=== PATIENT | female | born 1965 | race Two or more races ===

== ENCOUNTER → 2025-06-08 | Outpatient (CLI) | payer MEDICAID, SELFPAY ==
--- NOTE | 2025-06-08 14:15 | XR_ITS ---
Examination: Screening digital mammography, bilateral Computer aided detection 3-D breast Tomosynthesis, bilateral Date and time of exam: June 08, 2025 0926 hours, compared to mammograms dating to August 19, 2009 Indication: Screening Technique: Nonmagnified MLO, CC views of the breasts to been obtained, reconstructed from 3-D Tomosynthesis images. R2 computer aided detection program utilized for evaluation of suspicious masses and/or abnormal calcifications. 3-D Tomosynthesis images obtained. Findings: Scattered areas of fibroglandular density Benign calcifications Small circumscribed subcentimeter nodules bilaterally Impression: BI-RADS Category 0: Incomplete: Need additional imaging evaluation Recommend follow-up bilateral breast sonography to confirm small circumscribed BI-RADS 2 benign nodules both breasts
== END | disposition home or self-care (01) ==
PROVIDERS: PCP Nurse Practitioner Primary Care; Referring Provider Nurse Practitioner Primary Care; Visit Provider Nurse Practitioner Primary Care
DX: Z12.31 Encounter for screening mammogram for malignant neoplasm of breast (principal); R92.323 Mammographic fibroglandular density, bilateral breasts
CPT/HCPCS: 77063; 77067

== ENCOUNTER → 2025-09-05 | Outpatient (CLI) | payer MEDICAID, SELFPAY ==
--- NOTE | 2025-09-05 14:30 | XR_ITS ---
Examination: Breast ultrasound complete, bilateral Date and time of exam: September 05 2025, 1428 hours INDICATIONS: Mammogram June 08, 2024 small circumscribed subcentimeter nodules bilaterally Technique: Real-time grayscale ultrasonographic imaging bilateral breasts, including all 4 quadrants as well as nipple retroareolar and axillary regions. Findings: Sonographic images right breast 6:00 cyst 4 x 4 mm no solid nodules Sonographic images left breast 2:00 cyst 5 x 4 mm no solid nodules IMPRESSION: BI-RADS Category 2: Benign findings
== END | disposition home or self-care (01) ==
PROVIDERS: PCP Nurse Practitioner Primary Care; Referring Provider Nurse Practitioner Primary Care; Visit Provider Nurse Practitioner Primary Care
DX: N63.0 Unspecified lump in unspecified breast (principal)
CPT/HCPCS: 76641